=== PATIENT | male | born 1995 | race Two or more races ===

== ENCOUNTER 2020-10-23 05:17 | Emergency (ER) | payer OTHER ==
[~2020-10-23] VITALS: Ht 182.9 cm; Wt 81.6 kg
[2020-10-23 05:34] VITALS: BP 159/101
== END 2020-10-23 10:09 | disposition home or self-care (01) ==
LOC: EDBD 05:17 → ER 05:17
DX: S63.634A Sprain of interphalangeal joint of right ring finger, initial encounter (principal); S80.811A Abrasion, right lower leg, initial encounter; Y08.89XA Assault by other specified means, initial encounter; Y93.89 Activity, other specified; Y92.89 Other specified places as the place of occurrence of the external cause; Y99.8 Other external cause status
CPT/HCPCS: 73140; 73562; 73590